=== PATIENT | female | born 1980 | race Caucasian/White ===

== ENCOUNTER 2019-12-03 22:54 | Emergency (ER) | payer OTHER ==
[2019-12-03] MEDS ORDERED: diphenhydrAMINE 50 MG/ML SDV IM ONE (23:48)
--- NOTE | 2019-12-03 23:54 | EDM.PDOC ---
ED HPI GENERAL MEDICAL PROBLEM - General Chief Complaint: Allergic Reaction Stated Complaint: ALLERGIC REACTION Time Seen by Provider: 12/03/19 23:25 Source of Information: Reports: Patient, Family History Limitations: Reports: No Limitations - History of Present Illness INITIAL COMMENTS - FREE TEXT/NARRATIVE: 39-year-old female took a dose of Augmentin tonight and within 15 to 20 minutes developed diffuse erythema of the face and neck and upper chest, burning of the palms and soles of her feet and a rash on the inner aspect of her legs. She could breathe but could not swallow. She became very nervous and came in to be seen. In route she is improved quite dramatically. She still has some burning on the soles of her feet and some erythema on the upper chest and inner aspect of both legs but she is now able to swallow. She still feels her throat is "full" but has no difficulty breathing. Some initial sinus congestion and runny nose has improved as well. She was placed on Augmentin today for "sinus infection" but also received influenza vaccines earlier today. 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: - Infectious Disease History Infectious Disease History: Reports: Chicken Pox - Past Surgical History HEENT Surgical History: Reports: WHIT Social & Family History - Tobacco Use Smoking Status *Q: Never Smoker - Caffeine Use Caffeine Use: Reports: Coffee - Recreational Drug Use Recreational Drug Use: No ED ROS ALLERGIC REACTION - Review of Systems Review Of Systems: See Below Constitutional: Denies: Fever, Chills HEENT: Reports: Other (Difficulty swallowing, facial and neck swelling) Respiratory: Denies: Shortness of Breath, Wheezing GI/Abdominal: Denies: Nausea, Vomiting Skin: Reports: Erythema (Erythema to face neck chest and lower extremities) Psychiatric: Reports: No Symptoms ED EXAM GENERAL NO PERIP PULSE - Physical Exam Exam: See Below Exam Limited By: No Limitations General Appearance: Alert, No Apparent Distress Eye Exam: Bilateral Eye: Normal Inspection Ears: Other (Bilateral cerumen impaction) Throat/Mouth: Normal Inspection Head: Atraumatic Neck: Normal Inspection Respiratory/Chest: No Respiratory Distress, Lungs Clear Cardiovascular: Regular Rate, Rhythm Extremities: Other (Mild erythema is still present on the inner aspect of both legs around the knees) Neurological: Alert, Oriented Skin Exam: Warm, Dry, Other (Faint rash still present on the upper chest and lower extremities) Course - Vital Signs Last Recorded V/S: Last Vital Signs Temp 96.4 F 12/03/19 23:19 Pulse 81 12/03/19 23:19 Resp 16 12/03/19 23:19 BP 126/78 12/03/19 23:19 Pulse Ox 95 12/03/19 23:19 - Orders/Labs/Meds Meds: Medications Discontinued Medications Generic Name Dose Route Start Last Admin Trade Name Edie PRN Reason Stop Dose Admin Diphenhydramine HCl 50 mg 12/03/19 23:48 12/03/19 23:56 Benadryl IM 12/03/19 23:49 50 mg ONETIME ONE Administration - Re-Assessments/Exams Free Text/Narrative Re-Assessment/Exam: 12/03/19 23:57 This likely was a reaction to the amoxicillin component of Augmentin, however she is dramatically improved so I do not think epinephrine or steroids are necessary at this time. She should stop the Augmentin, she was given 50 mg of IM Benadryl, and a Zithromax prescription to start tomorrow. She can repeat Benadryl every 4-6 hours for any lingering symptoms. Departure - Departure Time of Disposition: 00:23 Disposition: Home, Self-Care 01 Clinical Impression: Allergic reaction caused by a drug Qualifiers: Encounter type: initial encounter Qualified Code(s): T78.40XA - Allergy, unspecified, initial encounter - Discharge Information Instructions: Allergies, Adult, [id number] Referrals: Quirino Walker MD [Primary Care Provider] - Forms: ED Department Discharge Care Plan Goals: Repeat Benadryl 25 to 50 mg every 4-6 hours if needed for lingering symptoms. Stop Augmentin and start Zithromax tomorrow for your sinus infection. Consider informing your primary care provider of a likely penicillin allergy. Return anytime sooner if worsening or concerns Sepsis Event Note - Evaluation Sepsis Screening Result: No Definite Risk - Focused Exam Vital Signs: Vital Signs Temp Pulse Resp BP Pulse Ox 12/03/19 23:19 96.4 F 81 16 126/78 95 12/03/19 23:12 96.4 F 81 16 126/78 95 Date Exam was Performed: 12/04/19 Time Exam was Performed: 00:43
== END 2019-12-04 00:21 | disposition home or self-care (01) ==
LOC: JP.ED 22:54
DX: T78.40XA Allergy, unspecified, initial encounter (principal); Z88.1 Allergy status to other antibiotic agents; Z88.8 Allergy status to other drugs, medicaments and biological substances
CPT/HCPCS: 96372; 99283; J1200